=== PATIENT | male | born 1950 | race Caucasian/White ===

== ENCOUNTER 2021-06-04 15:09 | Emergency (ER) | payer BC ==
[~2021-06-04] VITALS: Ht 167.6 cm; Wt 77.1 kg
[~2021-06-04 15:09] MED LIST: ASPI81CH43 PO; ATOR40TA52 PO; CAR3125T PO; CLOP75TA28 PO
[2021-06-04 15:54] LABS: Basophils # (auto) 0.1 10 ^3/uL (0-0.2); Basophils % (auto) 0.9 % (0.0-2.0); Eosinophils # (auto) 0.1 10 ^3/uL (0-0.8); Eosinophils % (auto) 1.7 % (0.0-7.0); Hematocrit 40.9 % (41.0-53.0); Lymphocytes # (auto) 0.9 10 ^3/uL (0.4-5.4); Lymphocytes % (auto) 17.6 % (10.0-50.0); Mean Corpuscular Hemoglobin 30.6 pg (28.0-32.0); Mean Corpuscular Hgb Conc. 34.2 g/dL (32.0-36.0); Mean Corpuscular Volume 89.4 fL (80.0-100.0); Monocytes # (auto) 0.5 10 ^3/uL (0-1.3); Monocytes % (auto) 10.3 % (0.0-12.0); Neutrophils # (auto) 3.7 10 ^3/uL (1.6-8.6); Neutrophils % (auto) 69.5 % (37.0-80.0); Nucleated Red Blood Cells % 0.1 %; Red Blood Cells 4.57 10^6/uL (4.5-5.90); Red Cell Distribution Width 13.9 % (11.8-14.3); White Blood Cell 5.3 10^3/uL (4.4-10.8)
[2021-06-04 16:14] LABS: Albumin 3.3 g/dL (3.4-5.0); BUN/Creatinine Ratio 11.7; Calcium 8.8 mg/dL (8.5-10.1); Magnesium 2.4 mg/dL (1.6-2.6); Potassium 3.9 mmol/L (3.5-5.1)
[2021-06-04 16:17] LABS: Bilirubin, Total 0.6 mg/dL (0.2-1.0); Total Protein 7.3 g/dL (6.4-8.2)
[2021-06-04 16:36] LABS: INR 1.18 (0.9-1.15); Partial Thromboplastin Time 33.5 sec (23.6-33.0)
[2021-06-04 17:02] LABS: INR 1.17 (0.9-1.15); Partial Thromboplastin Time 35.1 sec (23.6-33.0)
[2021-06-04 17:39] VITALS: BP 129/78
== END 2021-06-04 16:39 | disposition short-term general hospital (02) ==
LOC: ER 15:10
DX: S06.5X0A Traumatic subdural hemorrhage without loss of consciousness, initial encounter (principal); I16.9 Hypertensive crisis, unspecified; R42 Dizziness and giddiness; Z90.49 Acquired absence of other specified parts of digestive tract; Z87.891 Personal history of nicotine dependence; X58.XXXA Exposure to other specified factors, initial encounter; Y93.89 Activity, other specified; Y92.89 Other specified places as the place of occurrence of the external cause; Y99.8 Other external cause status
CPT/HCPCS: 36415; 70450; 71045; 80053; 83735; 85025; 85610; 85730; 93005; 96365; 99291; J1953; J7060

== ENCOUNTER 2021-06-22 12:10 | Emergency (ER) | payer BC ==
[~2021-06-22] VITALS: Ht 177.8 cm; Wt 81.6 kg
[2021-06-22 12:19] VITALS: BP 137/81
[2021-06-22 13:55] LABS: Red Cell Distribution Width 14.1 % (11.8-14.3)
[2021-06-22 13:56] LABS: Hematocrit 40.7 % (41.0-53.0); Mean Corpuscular Hgb Conc. 34.3 g/dL (32.0-36.0); Mean Corpuscular Volume 87.7 fL (80.0-100.0); Red Blood Cells 4.64 10^6/uL (4.5-5.90); White Blood Cell 9.9 10^3/uL (4.4-10.8)
[2021-06-22 14:02] LABS: Anion Gap 8 (5-15); Blood Urea Nitrogen 15 mg/dL (7-18); Calcium 9.1 mg/dL (8.5-10.1); Carbon Dioxide 24 mmol/L (21-32); Chloride 102 mmol/L (98-107); Glucose 106 mg/dL (74-106); Potassium 3.7 mmol/L (3.5-5.1); Sodium 134 mmol/L (136-145)
[2021-06-22 14:06] LABS: Alanine Aminotransferase 156 U/L (16-61); Alkaline Phosphatase 103 U/L (45-117); Aspartate Aminotransferase 63 U/L (15-37); BUN/Creatinine Ratio 16.5; Bilirubin, Total 0.5 mg/dL (0.2-1.0); GFR African American 107 mL/min; GFR Non-African American 88 mL/min; Total Protein 8.4 g/dL (6.4-8.2)
[2021-06-22 14:11] LABS: Basophils % (manual) 0 (0.0-2.0); Blast Cells 0; Myelocytes % 0; Promyelocytes % 0; Reactive Lymphocytes 0
[2021-06-22 14:48] LABS: Band Neutrophils % (manual) 2; Eosinophils % (manual) 4 (0-7); Lymphocytes % (manual) 12 (10.0-50.0); Metamyelocytes % 1; Monocytes % (manual) 11 (0-12)
== END 2021-06-22 23:32 | disposition left against medical advice (07) ==
LOC: ER 12:10
DX: R51.9 Headache, unspecified (principal); H53.8 Other visual disturbances; R42 Dizziness and giddiness; Z53.21 Procedure and treatment not carried out due to patient leaving prior to being seen by health care provider
CPT/HCPCS: 36415; 80053; 83880; 84484; 85007; 85027

== ENCOUNTER 2021-06-23 10:27 | Emergency (ER) | payer BC ==
[~2021-06-23] VITALS: Ht 170.2 cm; Wt 77.1 kg
[2021-06-23 12:03] LABS: Hemoglobin 14.5 g/dL (13.5-17.5)
[2021-06-23 12:05] LABS: Hematocrit 42.3 % (41.0-53.0); Mean Corpuscular Hemoglobin 30.1 pg (28.0-32.0); Mean Corpuscular Hgb Conc. 34.2 g/dL (32.0-36.0); Mean Corpuscular Volume 88.1 fL (80.0-100.0); Red Blood Cells 4.81 10^6/uL (4.5-5.90); Red Cell Distribution Width 14.4 % (11.8-14.3); White Blood Cell 10.1 10^3/uL (4.4-10.8)
[2021-06-23 12:14] LABS: Basophils % (manual) 0 (0.0-2.0); Blast Cells 0; Eosinophils % (manual) 0 (0-7); Promyelocytes % 0; Reactive Lymphocytes 0
[2021-06-23 12:18] LABS: Chloride 102 mmol/L (98-107); Potassium 3.6 mmol/L (3.5-5.1); Sodium 135 mmol/L (136-145)
[2021-06-23 12:27] LABS: Alanine Aminotransferase 132 U/L (16-61); Albumin 3.1 g/dL (3.4-5.0); Alkaline Phosphatase 97 U/L (45-117); Anion Gap 8 (5-15); Aspartate Aminotransferase 50 U/L (15-37); BUN/Creatinine Ratio 15.9; Bilirubin, Total 0.6 mg/dL (0.2-1.0); Blood Urea Nitrogen 14 mg/dL (7-18); Calcium 9.4 mg/dL (8.5-10.1); Carbon Dioxide 25 mmol/L (21-32); GFR African American 111 mL/min; GFR Non-African American 92 mL/min; Glucose 110 mg/dL (74-106); Total Protein 8.2 g/dL (6.4-8.2)
[2021-06-23 12:59] LABS: Band Neutrophils % (manual) 1; Lymphocytes % (manual) 11 (10.0-50.0); Metamyelocytes % 2; Monocytes % (manual) 10 (0-12); Myelocytes % 5
[2021-06-23] MEDS ORDERED: SODIUM CHLOR 0.9% PF (SALINE LOCK) 10ML VIAL/SYR IV SCH (14:00)
[2021-06-23 14:01] VITALS: BP 144/93
== END 2021-06-23 14:08 | disposition short-term general hospital (02) ==
LOC: ER 10:27
DX: S06.5X0A Traumatic subdural hemorrhage without loss of consciousness, initial encounter (principal); R42 Dizziness and giddiness; E78.5 Hyperlipidemia, unspecified; Z90.49 Acquired absence of other specified parts of digestive tract; Z87.891 Personal history of nicotine dependence; Z79.82 Long term (current) use of aspirin; Z79.01 Long term (current) use of anticoagulants; Z79.899 Other long term (current) drug therapy; Z88.0 Allergy status to penicillin; Z88.8 Allergy status to other drugs, medicaments and biological substances; Z88.5 Allergy status to narcotic agent; W19.XXXA Unspecified fall, initial encounter; Y93.89 Activity, other specified; Y92.89 Other specified places as the place of occurrence of the external cause; Y99.8 Other external cause status
CPT/HCPCS: 36415; 70450; 71045; 80053; 84484; 85007; 85027; 93005; 99291